=== PATIENT | female | born 1985 | race Caucasian/White ===

== ENCOUNTER 2016-09-04 03:17 | Emergency (ER) | payer MEDICAID, OTHER ==
[~2016-09-04] VITALS: Ht 172.7 cm; Wt 69.0 kg
[2016-09-04 03:29] VITALS: BP 125/57; PULSE 97; RESP 22; TEMP 98.7; O2SAT 97
[2016-09-04] MEDS ORDERED: DOXY1CAP (03:39)
[2016-09-04] MEDS ORDERED: HYDR-3516 PO (03:39)
[2016-09-04] MEDS ORDERED: HYDR25TA5 PO (03:39)
[2016-09-04] MEDS ORDERED: LEVE500 PO (03:39)
[2016-09-04] MEDS ORDERED: METR-1 PO (03:39)
--- NOTE | 2016-09-04 04:01 | PD ---
HPI Chief Complaint: Abdominal Pain Time Seen by Provider: 04:01 Travel History International Travel<30 days: No Contact w/Intl Traveler<30days: No Traveled to known affect area: No History of Present Illness HPI 31-year-old female came to the emergency room with history of pelvic pain. She seemed to be in distress and in pain and her mother was giving most of the history. Apparently patient was diagnosed with PID at [facility] on September 21 and was admitted for 6 days after which she was transferred to [facility] for 3 days. She was discharged home 3 days ago and she came to live with her mother. Patient is currently on Flagyl, doxycycline and Percocet for pain as prescribed by the POSTDOCTORAL FELLOW from [facility]. As per the mother there is a surgery scheduled after 6 weeks. They wanted the infection to calm down. However patient last I started to have severe pain and mom called 911 and was brought in by EMS. No history of vomiting or diarrhea. Vital signs are stable. [facility] Past Medical History Narrative Medical List of her past medical, surgical, social and family history is reviewed from the nursing note. Autoimmune Disease: Yes (LUPUS) Diminished Hearing: No Genitourinary: Yes (PID 08/2016) Seizures: Yes Tetanus Vaccination: Unknown Influenza Vaccination: No ?: Not : 2 Para: 2 Past Surgical History Appendectomy: Yes Section: Yes Social History Alcohol Use: No Tobacco Use: No Substance Use: Yes (Marijuana daily) Allergies-Medications (Allergen,Severity, Reaction): Coded Allergies: No Known Allergies (Unverified , 09/04/16) Comments List of her allergies reviewed from the nursing note. Reported Meds & Prescriptions Reported Meds & Active Scripts Active Reported Hydrocodone-Acetaminophen 5-325 mg Tab 1 Tab PO Q4H PRN Flagyl (Metronidazole) 500 Mg Tab 500 Mg PO TID Doxycycline (Doxycycline (Monohydrate)) 75 Mg Cap Hydrochlorothiazide 25 Mg Tab 25 Mg PO DAILY Keppra (Levetiracetam) 500 Mg Tab 500 Mg PO BID Narrative Medication List of her home medications reviewed from the nursing note. Review of Systems Except as stated in HPI: all other systems reviewed are Neg Physical Exam Narrative GENERAL: Awake, alert, moderate distress, anxious SKIN: Focused skin assessment warm/dry. HEAD: Atraumatic. Normocephalic. EYES: Pupils equal and round. No scleral icterus. No injection or drainage. ENT: No nasal bleeding or discharge. Mucous membranes pink and moist. NECK: Trachea midline. No JVD. CARDIOVASCULAR: Regular rate and rhythm. No murmur appreciated. RESPIRATORY: No accessory muscle use. Clear to auscultation. Breath sounds equal bilaterally. GASTROINTESTINAL: Abdomen soft, non-tender, nondistended. Hepatic and splenic margins not palpable. MUSCULOSKELETAL: No obvious deformities. No clubbing. No cyanosis. No edema. NEUROLOGICAL: Awake and alert. No obvious cranial nerve deficits. Motor grossly within normal limits. Normal speech. PSYCHIATRIC: Appropriate mood and affect; insight and judgment normal. Data Data Last Documented VS Vital Signs Date Time Temp Pulse Resp B/P Pulse Ox O2 Delivery O2 Flow Rate FiO2 09/04/16 03:29 98.7 97 22 125/57 97 Orders Complete Blood Count With Diff (09/04/16 04:05) Basic Metabolic Panel (Bmp) (09/04/16 04:05) Urinalysis - C+S If Indicated (09/04/16 04:05) Ketorolac Inj (Toradol Inj) (09/04/16 04:15) Sodium Chlor 0.9% 1000 Ml Inj (Ns 1000 M (09/04/16 04:15) Ondansetron Inj (Zofran Inj) (09/04/16 04:15) Drug Screen, Random Urine (09/04/16 04:39) Us Pelvis Comp W Dop Transvag (09/04/16 ) Labs Laboratory Tests Test 09/04/16 09/04/16 04:30 04:35 Urine Color YELLOW Urine Turbidity HAZY Urine pH 7.0 Urine Specific [place] 1.007 Urine Protein NEG mg/dL Urine Glucose (UA) NEG mg/dL Urine Ketones NEG mg/dL Urine Occult Blood NEG Urine Nitrite NEG Urine Bilirubin NEG Urine Urobilinogen LESS THAN 2.0 MG/DL Urine Leukocyte Esterase MOD Urine RBC 1 /hpf Urine WBC LESS THAN 1 /hpf Urine Squamous Epithelial 1 /hpf Cells Urine Bacteria RARE /hpf Urine Mucus FEW /lpf Microscopic Urinalysis Comment CULT NOT INDICATED Urine Opiates Screen NEG Urine Barbiturates Screen NEG Urine Amphetamines Screen NEG Urine Benzodiazepines Screen NEG Urine Cocaine Screen NEG Urine Cannabinoids Screen POS White Blood Count 10.2 TH/MM3 Red Blood Count 4.84 MIL/MM3 Hemoglobin 15.3 GM/DL Hematocrit 44.4 % Mean Corpuscular Volume 91.6 FL Mean Corpuscular Hemoglobin 31.5 PG Mean Corpuscular Hemoglobin 34.4 % Concent Red Cell Distribution Width 13.1 % Platelet Count 403 TH/MM3 Mean Platelet Volume 9.1 FL Neutrophils (%) (Auto) 59.6 % Lymphocytes (%) (Auto) 31.0 % Monocytes (%) (Auto) 6.5 % Eosinophils (%) (Auto) 2.2 % Basophils (%) (Auto) 0.7 % Neutrophils # (Auto) 6.1 TH/MM3 Lymphocytes # (Auto) 3.2 TH/MM3 Monocytes # (Auto) 0.7 TH/MM3 Eosinophils # (Auto) 0.2 TH/MM3 Basophils # (Auto) 0.1 TH/MM3 CBC Comment DIFF FINAL Differential Comment Sodium Level 138 MEQ/L Potassium Level 3.9 MEQ/L Chloride Level 107 MEQ/L Carbon Dioxide Level 21.8 MEQ/L Anion Gap 9 MEQ/L Blood Urea Nitrogen 10 MG/DL Creatinine 0.79 MG/DL Estimat Glomerular Filtration 85 ML/MIN Rate Random Glucose 88 MG/DL Calcium Level 9.2 MG/DL MDM Medical Decision Making Medical Screen Exam Complete: Yes Emergency Medical Condition: Yes Medical Record Reviewed: Yes Differential Diagnosis PID, chronic pelvic pain, UTI Narrative Course 5:38 AM blood test results and UA is back and within normal limits. Ultrasound showed bilateral complex adnexal cyst consistent possibly with TOA. I discussed the case with Dr. Garcia from OB hospitalist service as per her the treatment plan by Yamilet Morataya was not unusual. However she has received more than 10 days of antibiotic and if her pain is not controlled she would be a candidate for surgery sooner than later. Based on this I recommended the patient to call the POSTDOCTORAL FELLOW service at [facility] and requests to be seen sooner for the surgery. Patient understands. I will discharge her at this point. She was medicated for pain when she first came in. 6:17 AM patient has been discharged but the paperwork faxed from [facility] was received not too long ago. The test results were suggestive of TOA, GC and Gardnerella positive. Their plan was to treat her with antibiotic for 2 weeks. Her white count when she first went in on July was 20,000 and before discharge on the seventh was 16,000. I'm reassured by these findings since her white blood cell count was completely within normal range today. These facts papers will be part of her medical record. Procedures EKG Prior to Arrival: No Diagnosis Primary Impression: Pelvic pain in female Additional Impression: Tubo-ovarian abscess Referrals: Primary Care Physician Additional Instructions: Please follow-up with your POSTDOCTORAL FELLOW from [facility] and have them schedule for the surgery sooner. Continue taking the antibiotic that you're on. Continue taking the pain medication that you've been prescribed. Med/Other Pt SpecificInfo: No Change to Meds Disposition: 01 DISCHARGE HOME Condition: Stable Bisi Arizmendi MD Sep 04, 2016 04:01
[2016-09-04] MEDS ORDERED: SODIUM CHLOR 0.9% 1000 ML INJ 1,000 ML IV ONE (04:15)
[2016-09-04] MEDS ORDERED: ONDANSETRON HCL 4 MG/2 ML VIAL IV PUSH ONE (04:15)
[2016-09-04] MEDS ORDERED: KETOROLAC TROMETHAMINE 30 MG/ML (IVP) VIAL IV PUSH ONE (04:15)
--- NOTE | 2016-09-04 05:01 | RADRPT ---
EXAM DATE/TIME: 09/04/2016 04:16 [place] COMPARISON: No previous studies available for comparison. INDICATIONS : Pelvic pain. Known TOA. MEDICAL HISTORY : Seizures. TOA. SURGICAL HISTORY : section. Appendectomy. ENCOUNTER: Initial ACUITY: 3 weeks PAIN SCORE: 10/10 LOCATION: Bilateral pelvis MEASUREMENTS: UTERUS: 8.5 x 5.5 x 5.6 cm ENDOMETRIAL STRIPE: 12 mm RIGHT OVARY: 5.0 x 4.3 x 4.3 cm LEFT OVARY: 4.0 x 2.1 x 2.2 cm FINDINGS: Uterus within normal limits. Complex fluid collection of the right ovary measuring 2.3 x 2.4 x 2.3 cm . There is a complex fluid collection of left adnexal region measuring 5.0 x 2.5 x 3.3 cm. Uterus within normal limits. Subcentimeter nabothian cyst of the cervix incidentally noted. No free fluid. CONCLUSION: Bilateral complex cystic structures of both adnexal regions as above, potentially tubo-ovarian absces ses or the sequela thereof. Lack of free fluid in the pelvic cavity would mitigate against acute absc ess, however. Valentino Jackson MD on September 04, 2016 at 4:56 Board Certified Radiologist. This report was verified electronically.
[2016-09-04 05:08] LABS: BACTERIA, URINE RARE /hpf; BLOOD, URINE NEG (NEG); COMMENT (UR) CULT NOT INDICATED; CULTURE IF INDICATED CULT NOT INDICATED; GLUCOSE,URINE NEG (NEG); KETONE, URINE NEG (NEG); MUCUS URINE FEW /lpf (OCC); NITRITE,URINE NEG (NEG); SQUAMOUS EPITHELIAL CELL URINE 1 /hpf (0-5); URINE COLOR YELLOW (YELLW/STRAW)
[2016-09-04 05:11] LABS: BICARBONATE 21.8 MEQ/L (21.0-32.0); POTASSIUM 3.9 MEQ/L (3.5-5.1)
[2016-09-04 05:16] LABS: AMPHETAMINE, URINE NEG (NEG); BARBITURATES, URINE NEG (NEG); COCAINE, URINE NEG (NEG)
[2016-09-04 05:21] LABS: AUTOMATED NEUTROPHIL # 6.1 TH/MM3 (1.8-7.7); BASOPHIL # 0.1 TH/MM3 (0-0.2); BASOPHIL % 0.7 % (0.0-2.0); EOSINOPHIL # 0.2 TH/MM3 (0-0.4); EOSINOPHIL % 2.2 % (0.0-4.0); HEMATOCRIT 44.4 % (35.0-46.0); HEMO FLAGS DIFF FINAL; LYMPHOCYTE # 3.2 TH/MM3 (1.0-4.8); MEAN CELL VOLUME 91.6 FL (80.0-100.0); MEAN CORPUSCULAR HEMOGLOBIN 31.5 PG (27.0-34.0); MEAN CORPUSCULAR HGB CONC 34.4 % (32.0-36.0); MONO % 6.5 % (0.0-8.0); NEUT % 59.6 % (16.0-70.0); PLATELET COUNT 403 TH/MM3 (150-450); RED BLOOD COUNT 4.84 MIL/MM3 (4.00-5.30); RED CELL DISTRIBUTION WIDTH 13.1 % (11.6-17.2); WHITE BLOOD COUNT 10.2 TH/MM3 (4.0-11.0)
== END 2016-09-04 05:51 | disposition home or self-care (01) ==
LOC: NEPE 03:17
DX: R10.2 Pelvic and perineal pain (principal); N70.93 Salpingitis and oophoritis, unspecified; Z79.899 Other long term (current) drug therapy
CPT/HCPCS: 76830; 76856; 80048; 80307; 81001; 85025; 93975; 96374; 96375; 99285; J1885; J2405; J7030